=== PATIENT | male | born 1960 | race Caucasian/White ===

== ENCOUNTER 2016-11-19 04:36 | Emergency (ER) | payer OTHER ==
[~2016-11-19] VITALS: Ht 208.3 cm; Wt 127.9 kg
[2016-11-19 04:57] VITALS: BP 174/86
--- NOTE | 2016-11-19 04:58 | ED GENERAL ADULT ---
History of Present Illness General Chief Complaint: ETOH/Drug Related Complaint Stated Complaint: BIBA, ETOH Source: patient, EMS Exam Limitations: no limitations Vital Signs & Intake/Output Vital Signs & Intake/Output Vital Signs Date Time Temp Pulse Resp B/P Pulse O2 O2 Flow FiO2 Ox Delivery Rate 11/19 0457 95.6 87 20 174/86 97 Room Air Allergies Coded Allergies: No Known Allergies (11/19/16) Reconcile Medications No Known Home Medications Triage Note: PT BIBA INTOXICATED. PT FOUND IN CAR SLEEPING IN GAS STATION. PT A/O X4. CALM AND COPPERATIVE. PT DENIES SI/HI. Triage Nurses Notes Reviewed? yes HPI: Patient presents for evaluation of intoxication. Patient admits that he had too much to drink tonight and felt uncomfortable about driving home. He fell asleep in his car in a gas station parking lot. He was approached by police and was told that he could either be placed in police custody or go to the emergency department for evaluation. The patient is without complaint at this time and denies SI or HI. He does not wish to have detox. Past History Travel History Traveled to [place] past 21 day No Medical History Any Pertinent Medical History? see below for history Surgical History Surgical History: non-contributory Family History Hx Contributory? No Review of Systems Review of Systems Constitutional: Reports: no symptoms. EENTM: Reports: no symptoms. Respiratory: Reports: no symptoms. Cardiovascular: Reports: no symptoms. GI: Reports: no symptoms. Genitourinary: Reports: no symptoms. Musculoskeletal: Reports: no symptoms. Skin: Reports: no symptoms. Neurological/Psychological: Reports: no symptoms. Hematologic/Endocrine: Reports: no symptoms. Immunologic/Allergic: Reports: no symptoms. All Other Systems: Reviewed and Negative Physical Exam Physical Exam General Appearance: SEE BELOW Comments: Gen.: Well-nourished, well-developed, no acute respiratory distress. Head: Normocephalic, atraumatic. Eyes: Normal inspection bilaterally Ears: Normal inspection bilaterally Nose: Normal inspection Throat/mouth : Moist mucosa Neck: Supple, full range of motion, no goiter Heart: Regular rate and rhythm, no murmurs rubs or gallops Lungs: Clear to auscultation bilaterally with normal air entry Chest: Nontender Back: Normal range of motion Abdomen: Soft, nontender, nondistended, normal bowel sounds Extremities: Normal range of motion grossly, equal radial pulses, no cyanosis clubbing or edema Neurologic: Cranial nerves grossly intact, speech is clear Skin: warm and dry Psychiatric: Calm, cooperative, no apparent delusions or hallucinations Core Measures ACS in differential dx? No CVA/TIA Diagnosis: No Severe Sepsis Present: No Septic Shock Present: No Progress Differential Diagnoses I considered the following diagnoses in my evaluation of the patient: Alcohol intoxication month suicide ideation, homicide ideation Plan of Care: See discharge instructions Initial ED EKG: none Comments: Patient was picked up by his brother. According to his nurse his gait was stable and his speech was clear at discharge. Departure Departure Disposition: HOME OR SELF CARE Condition: Stable Clinical Impression Primary Impression: Alcohol intoxication Qualifiers: Complication of substance-induced condition: uncomplicated Qualified Code: F10.120 - Alcohol abuse with intoxication, uncomplicated Additional Instructions: Try to cut down on your drinking. Follow-up with your primary care physician this week for general medical evaluation. Return if any concerns or sudden worsening. Departure Forms: Customer Survey General Discharge Information Prescriptions: Current Visit Scripts No Known Home Medications Critical Care Note Critical Care Note Critical Care Time: non-applicable
== END 2016-11-19 05:34 ==
LOC: ERH 04:36
DX: F10.129 Alcohol abuse with intoxication, unspecified (principal)